=== PATIENT | male | born 1945 | race Caucasian/White ===

== ENCOUNTER 2018-06-27 15:35 | Emergency (ER) | END 2018-06-27 18:57 | disposition home or self-care (01) ==

== ENCOUNTER 2019-05-08 06:35 | Inpatient (IN) | payer MEDICARE, OTHER ==
[~2019-05-08] VITALS: Ht 172.7 cm; Wt 60.0 kg
[~2019-05-08 06:35] MED LIST: ALBU18HF INHALATION; ASPI-716 PO; ASPI-831 GTB; CALC-662 PO; CIPR500T4 PO; DARU600T3 PO; ETRA100T3 PO; LORAZEPAM 0.5 MG; MECL12.574 PO; NIACIN; NIT4 SL; NORV100 PO; OLAN20TA3 PO; OMEP40CA3 PO; PHEN-538 PO; PRAV80TA27 PO; PRED20TA PO; RALT100T PO; TEMA7.5C PO; VENTOLIN PRN
[2019-05-08 06:37] VITALS: Ht 172.7 cm; Wt 60.0 kg
[2019-05-08] MEDS ORDERED: IPRATROPIUM (NEB) 0.5 MG/2.5 ML AMP INH STA (06:42)
[2019-05-08] MEDS ORDERED: METHYLPREDNISOLONE 125 MG INJ IV STA (06:42)
[2019-05-08] MEDS ORDERED: ALBUTEROL 0.5% (NEB) 2.5 MG/0.5 ML AMP INH STA ×2 (06:42→08:17)
[2019-05-08] MEDS ORDERED: SODIUM CHLORIDE 0.9% 1L BAG IV* STA (06:43)
--- NOTE | 2019-05-08 06:56 | ERD ---
ER Documentation Chief Complaint Chief Complaint HPI This is a 73-year-old man with a history of COPD and hypertension presenting wit h shortness of breath, cough, wheezing, and generalized weakness. Patient states he feels dehydrated was well and was brought in by his son for hydration and evaluation in the ER. Patient denies chest pain, no vomiting or diarrhea, no headache or blurry vision, no blood per rectum or melena. ROS All systems reviewed and are negative except as per history of present illness. Medications Home Meds Reported Medications Metoprolol Succinate* (Toprol XL*) 25 Mg Tab.sr.24h, 25 MG PO DAILY, #30 TAB 05/08/19 Olanzapine* (Zyprexa*) 2.5 Mg Tablet, 2.5 MG PO DAILY, #30 TAB 05/08/19 Darunavir* (Prezista*) 800 Mg Tablet, 800 MG PO DAILY, TAB 05/08/19 Alprazolam* (Alprazolam*) 0.5 Mg Tablet, 0.5 MG PO DAILY PRN for ANXIETY, TAB 05/08/19 Temazepam* (Temazepam*) 30 Mg Capsule, 30 MG PO HS PRN for INSOMNIA, CAP 05/08/19 Omeprazole* (Omeprazole*) 40 Mg Capsule.dr, 40 MG PO DAILY, #30 CAP 05/08/19 Ranitidine Hcl* (Ranitidine Hcl*) 300 Mg Tablet, 300 MG PO HS, #30 TAB 05/08/19 Pravastatin Sodium* (Pravastatin Sodium*) 80 Mg Tablet, 80 MG PO HS, TAB 05/08/19 Ritonavir* (Norvir*) 100 Mg Capsule, 100 MG PO DAILY, CAP 05/08/19 Etravirine (Intelence) 100 Mg Tablet, 100 MG PO QID, TAB 05/08/19 Raltegravir Potassium* (Isentress*) 400 Mg Tablet, 400 MG PO BID, TAB 05/08/19 Aspirin* (Aspirin* EC) 81 Mg Tablet.dr, 81 MG PO DAILY, TAB 05/08/19 Magnesium Oxide* (Magnesium Oxide*) 400 Mg Tablet, 400 MG PO DAILY, TAB 05/08/19 Calcium Carbonate/Vitamin D3 (Oysco 500+D Tablet) 1 Each Tablet, 1 EACH PO BID, TAB 05/08/19 Losartan Potassium* (Losartan Potassium*) 25 Mg Tablet, 12.5 MG PO DAILY, TAB 05/08/19 Discontinued Reported Medications [Ventolin Prn] No Conflict Check 08/15/13 Nitroglycerin (Nitrostat) 25 Tab Subl, 0.4 TAB SL PRN 08/15/13 Olanzapine* (Zyprexa*) 20 Mg Tablet, 20 MG PO DAILY 08/15/13 Aspirin* (Ecotrin*) 81 Mg Tablet.dr, 81 MG PO DAILY 08/15/13 Aspirin (Aspirin) 81 Mg Chew, 81 MG GTB 08/15/13 Ritonavir* (Norvir*) 100 Mg Capsule, 100 MG PO DAILY 08/15/13 Raltegravir Potassium (Isentress) 100 Mg Tab.chew, 400 MG PO BID 08/15/13 Etravirine (Intelence) 100 Mg Tablet, 100 MG PO BID 08/15/13 Pravastatin Sodium* (Pravastatin Sodium*) 80 Mg Tablet, 80 MG PO HS 08/15/13 [Sio-Niacin] No Conflict Check 08/15/13 Omeprazole* (Prilosec*) 40 Mg Capsule.dr, 40 MG PO DAILY 08/15/13 [Lorazepam 0.5 Mg. X2] No Conflict Check 08/15/13 Temazepam* (Temazepam*) 7.5 Mg Capsule, 15 MG PO HS 08/15/13 Calcium Carbonate-Vitamin D3 (Calcium 500 + D Tablet) 1 Each Tablet, 1 EACH PO DAILY 08/15/13 Darunavir Ethanolate* (Prezista*) 600 Mg Tablet, 800 MG PO DAILY 08/15/13 Discontinued Scripts Meclizine Hcl* (Antivert*) 12.5 Mg Tab, 25 MG PO Q6H PRN for DIZZINESS, #20 TAB Prov:JAJA RANGEL MD 06/27/18 Prednisone* (Prednisone*) 20 Mg Tab, 40 MG PO DAILY for 4 Days, TAB Prov:GEOVANI PATIÑO MD 07/13/17 Albuterol Sulfate* (Ventolin HFA*) 18 Gm Hfa.aer.ad, 2 PUFF INHALATION Q4H, #1 INHALER Prov:GEOVANI PATIÑO MD 07/13/17 Phenazopyridine Hcl* (Pyridium*) 200 Mg Tab, 200 MG PO TID PRN for URINARY PAIN, #6 TAB Prov:GEOVANI PATIÑO MD 07/13/17 Ciprofloxacin Hcl* (Ciprofloxacin Hcl*) 500 Mg Tablet, 500 MG PO BID for 7 Days, TAB Prov:GEOVANI PATIÑO MD 07/13/17 Allergies Allergies: Coded Allergies: No Known Allergies (Verified Allergy, Unknown, 05/08/19) PMhx/Soc CAD, history of stent, pacemaker, COPD current smoker, hypertension History of Surgery: Yes (PACEMAKER X 2 , STENT PLACED ) Anesthesia Reaction: No Hx Neurological Disorder: No Hx Respiratory Disorders: Yes (EMPHYSEMA, SOB ON EXERTION) Hx Cardiac Disorders: Yes (CAD, STENT PLACED, PACEMAKER) Hx Psychiatric Problems: Yes (DEPRESSION) Hx Miscellaneous Medical Probl: Yes (HTN, A/V BLOCK) Hx Alcohol Use: Yes Hx Substance Use: Yes Hx Tobacco Use: Yes FmHx Family History: No diabetes Physical Exam Vitals Vital Signs Date Temp Pulse Resp B/P (MAP) Pulse Ox O2 O2 Flow FiO2 Time Delivery Rate 05/08/19 93 107/77 10:35 (87) 05/08/19 96 17 100/94 100 Room Air 10:00 (96) BIPAP 05/08/19 109 90/57 (68) 09:11 05/08/19 112 82/52 (62) 09:02 05/08/19 112 28 77/51 (60) 93 08:59 05/08/19 101.0 07:24 05/08/19 101.0 07:16 05/08/19 89 20 Nasal 2.0 06:59 Cannula 05/08/19 Nasal 3 06:55 Cannula 05/08/19 98.7 114 26 110/59 91 06:37 (76) Per nurse's records Physical Exam Const: Elderly, chronically debilitated man, appears dehydrated, febrile HEENT: Dry mucous membranes, pink conjunctive a, Resp: Poor breath sounds, scattered wheezes Cardio: Tachycardic and regular, no crackles Abd: Soft, non tender, non distended. No masses or guarding Skin: No petechiae or rashes, no lacerations, no hematomas Ext: No cyanosis, or edema, calves symmetrical Neur: Awake and alert x 2, no focal deficits or facial asymmetry, pupils equal round reactive to light, moving all extremities Result Diagram: 05/08/19 0801 05/08/19 0801 Results 24 hrs Laboratory Tests Test 05/08/19 07:09 05/08/19 07:40 05/08/19 08:01 05/08/19 08:03 POC Venous 8.9 mmol/L Lactate Urine Color SHANT Urine Clarity SLIGHTLY CLOUDY Urine pH 6.0 Urine Specific 1.016 [place] Urine Ketones TRACE mg/dL Urine Nitrite NEGATIVE mg/dL Urine Bilirubin NEGATIVE mg/dL Urine 1+ mg/dL Urobilinogen Urine Leukocyte NEGATIVE Too/ul Esterase Urine 12 /HPF Microscopic RBC Urine 8 /HPF Microscopic WBC Urine Mucus FEW /HPF Urine 2+ mg/dL Hemoglobin Urine Glucose NEGATIVE mg/dL Urine Total 2+ mg/dl Protein White Blood 4.9 10^3/ul Count Red Blood Count 4.63 10^6/ul Hemoglobin 13.4 g/dl Hematocrit 41.0 % Mean 88.6 fl Corpuscular Volume Mean 28.9 pg Corpuscular Hemoglobin Mean 32.7 g/dl Corpuscular Hemoglobin Conc ent Red Cell 14.6 % Distribution Width Platelet Count 84 10^3/UL Mean Platelet 9.7 fl Volume Immature 1.000 % Granulocytes % Neutrophils % 83.2 % Lymphocytes % 9.9 % Monocytes % 5.7 % Eosinophils % 0.0 % Basophils % 0.2 % Nucleated Red 0.4 /100WBC Blood Cells % Immature 0.050 10^3/ul Granulocytes # Neutrophils # 4.1 10^3/ul Lymphocytes # 0.5 10^3/ul Monocytes # 0.3 10^3/ul Eosinophils # 0.0 10^3/ul Basophils # 0.0 10^3/ul Nucleated Red 0.0 10^3/ul Blood Cells # Prothrombin 17.7 Sec Time Prothrombin 1.4 Time Ratio INR 1.45 International Normalized Rati o Activated 34.4 Sec Partial Thrombo plast Time Sodium Level 133 mmol/L Potassium Level 4.9 mmol/L Chloride Level 101 mmol/L Carbon Dioxide 20 mmol/L Level Anion Gap 12 Blood Urea 40 mg/dl Nitrogen Creatinine 1.46 mg/dl Est Glomerular mL/min Filtrat Rate mL/min Glucose Level 106 mg/dl Calcium Level 7.8 mg/dl Total Bilirubin 1.3 mg/dl Direct 0.40 mg/dl Bilirubin Indirect 0.9 mg/dl Bilirubin Aspartate Amino 83 IU/L Transf (AST/SGO T) Alanine 73 IU/L Aminotransferas e (ALT/SGPT) Alkaline 58 IU/L Phosphatase Troponin I 0.072 ng/ml Total Protein 5.5 g/dl Albumin 2.7 g/dl Globulin 2.80 g/dl Albumin/Globuli 0.96 n Ratio Lipase 15 U/L Lactic Acid 7.1 mmol/L Level Test 05/08/19 09:46 Blood Gas Blood arterial Specimen Source Arterial Blood 05/08/2019 9:45: Date Drawn 59 AM Arterial Blood 7.351 pH (Temp corrected ) Arterial Blood 31.1 mmhg pCO2 (Temp correct) Arterial Blood 130.9 mmHG pO2 (Temp corrected ) Arterial Blood 16.8 mmol/L HCO3 Arterial Blood -7.6 mmol/L Base Excess Arterial Blood 98.0 mmHG Oxygen Saturati on Mark Test ACCEPTAB Arterial Blood Right Radial Gas Puncture Site Arterial 1.0 % Blood Carboxyhe moglobin Arterial Blood 0.1 % Methemoglobin Blood Gas A-a 551.0 mmHg O2 Differential Oxyhemoglobin 96.9 % Percent Blood Gas 37.0 C Temperature Blood Gas 14.0 Respiration Rate Blood Gas 16 Actual Respiration Rat e Blood Gas MASK - BIPAP Modality FiO2 100.0 % Blood Gas 10 Pressure Support Blood Gas 15/5 IPAP/EPAP Ratio Blood Gas RT Notified Whom Blood Gas 05/08/2019 9:56: Notified Time 39 AM Current Medications Medications Dose Sig/Jorge Start Time Status Last (Trade) Ordered Route PRN Stop Time Admin Dose Reason Admin Albuterol 10 mg ONCE STAT 05/08/19 DC 05/08/19 (Proventil INH 06:42 06:59 0.5% (Neb)) 05/08/19 06:43 Ipratropium 1 mg ONCE STAT 05/08/19 DC 05/08/19 [place] INH 06:42 06:59 (Atrovent 05/08/19 06:43 0.02% (Neb)) 125 mg ONCE STAT 05/08/19 DC 05/08/19 Methylprednis IV 06:42 07:24 olone Sodium 05/08/19 06:43 Succinate (Solu-Medrol) Sodium 3,000 ml BOLUS OVER 2 05/08/19 DC 05/08/19 Chloride HOURS STAT 06:43 07:18 (NS) IV* 05/08/19 06:48 Ibuprofen 600 mg ONCE ONCE 05/08/19 DC 05/08/19 (Motrin) PO 07:00 07:24 05/08/19 07:01 Ceftriaxone 50 ml @ ONCE ONCE 05/08/19 DC 05/08/19 Sodium 100 mls/hr IVPB 07:00 08:16 05/08/19 07:29 Azithromycin 250 ml @ ONCE ONCE 05/08/19 DC 05/08/19 250 mls/hr IVPB 07:30 08:49 05/08/19 08:29 Albuterol 10 mg ONCE STAT 05/08/19 DC 05/08/19 (Proventil INH 08:17 08:54 0.5% (Neb)) 05/08/19 08:18 Piperacillin 100 ml @ Q6 IVPB 05/08/19 Sod/ 200 mls/hr 12:00 Tazobactam Sod Vancomycin VANCOMYCIN PER 05/08/19 HCl (Vanco PER PHARMACY PROTOCOL XX 09:30 Iv Per Pharmacy) 250 ml @ ud STK-MED 05/08/19 DC Norepinephrin ONCE .ROUTE 09:42 e 05/08/19 09:43 250 ml @ TITRATE IV 05/08/19 05/08/19 Norepinephrin 1.875 mls/ 10:00 09:50 e hr Vancomycin 250 ml @ ONCE ONCE 05/08/19 HCl 1.25 83.333 mls/ IVPB 11:00 gm/Sodium hr 05/08/19 13:59 Chloride Procedures/MDM IV line was established patient was placed on campus monitor rhythm strip revealed a paced tachycardia at 100 bpm with upright P and T waves. Patient was afebrile, blood, urine, fecal cultures have all been ordered results are pending and I will follow-up I administered 3 L normal saline IV for dehydration, albuterol 10 mg via nebulizer, ipratropium 1 mg via nebulizer, methylprednisolone 125 mg IV, and ceftriaxone 1 g IV. Patient also received ibuprofen 600 mg p.o. for fever. EKG performed, read by me revealed a paced rhythm at 88 bpm, left axis deviation, bundle branch block, no concerning ST elevations or depressions noted 1 view chest x-ray performed, read by me reveals a pacemaker in the left chest and near complete opacification of the right lung consistent with infiltrates, no pneumothorax, no air under the diaphragm I also administered azithromycin 500 mg IV x1. CBC was unremarkable, electrolytes revealed dehydration with a BUN creatinine 40/1.5, liver function tests elevated, troponin negative Patient's infectious symptoms have not stabilized and the patient is at risk of rapid decompensation. The patient will be admitted for careful hydration, an tibiotic therapy, and infectious source control. SEVERE SEPSIS CRITERIA: Infectious source: Right-sided pneumonia End organ damage indicated by: SEPSIS MANAGEMENT Time of recognition of sepsis: Upon arrival. Time of recognition of severe sepsis: severe sepsis at this time. Time of recognition of septic shock: septic shock at this time. 3 HOUR BUNDLE Blood cultures x 2 before broad-spectrum antibiotics: Yes 30 ml/kg NS bolus completed Initial lactate 8 Repeat lactate 7.1 SEPTIC SHOCK ASSESSMENT: yes lactic acid > 4.0 Yes persistent hypotension (SBP < 90 or 40 mmHg drop, MAP < 65) despite 30 mL/kg IV fluid bolus VOLUME REASSESSMENT FOR SEPTIC SHOCK: Reevaluation Time: 730 Temp 100 F, BP 100/80, heart rate 80, respiratory rate 30 breaths/min, oxygen saturation 96% Heart regular rate & rhythm Lungs poor breath sounds bilaterally, scattered wheezes Skin warm & dry Cap Refill less than 2 seconds Peripheral pulses radially present PERSISTENT HYPOTENSION TREATMENT: Comfort care no Central line placed in the right femoral vein by me under sterile procedures. Patient tolerated procedure well. CRITICAL CARE: Critical care time 35 minutes, this was time separate from other billable procedures. Emergent fluid management while maintaining close respiratory support. Provision of immediate and broad-spectrum antibiotic therapy. Simultaneous assessment for possible sources in order to direct targeted therapy. Consideration for invasive and chemical support to prevent cardiopulmonary collapse. Critical care time is independent of procedures performed. Accepting Care Team: Current data and ongoing care discussed. Time: Time of admission Primary Provider: Hospitalist Consulting: Infectious disease and pulmonology Outstanding Data: none Departure Diagnosis: Primary Impression: Diarrhea with dehydration Additional Impressions: COPD (chronic obstructive pulmonary disease) COPD type: COPD with acute exacerbation Qualified Codes: J44.1 - Chronic obstructive pulmonary disease with (acute) exacerbation Sepsis Sepsis type: sepsis due to unspecified organism Qualified Codes: A41.9 - Sepsis, unspecified organism Pneumonia Pneumonia type: due to unspecified organism Laterality: right Lung location: middle lobe of lung Qualified Codes: J18.1 - Lobar pneumonia, unspecified organism Condition: Serious ERNESTO JOHNSON MD May 08, 2019 06:55
[2019-05-08] MEDS ORDERED: CEFTRIAXONE 1 GM/50 ML (PMX) 50 ML IVPB ONE (07:00)
[2019-05-08] MEDS ORDERED: IBUPROFEN 600 MG TAB PO ONE (07:00)
[2019-05-08] MEDS ORDERED: AZITHROMYCIN 500MG/NS (PMX) 250 ML IVPB ONE (07:30)
[2019-05-08] MEDS ORDERED: VANCOMYCIN IV PER PHARMACY XX SCH (09:30)
[2019-05-08] MEDS ORDERED: NORepinephrine 8MG/250 ML (PMX 250 ML ONE (09:42)
[2019-05-08] MEDS ORDERED: NORepinephrine 8MG/250 ML (PMX 250 ML IV SCH (10:00)
[2019-05-08] MEDS ORDERED: LOSA25TA12 PO (10:01)
[2019-05-08] MEDS ORDERED: CALC1TAB79 PO (10:03)
[2019-05-08] MEDS ORDERED: MAGN400T28 PO (10:04)
[2019-05-08] MEDS ORDERED: ASPI-817 PO (10:04)
[2019-05-08] MEDS ORDERED: ISEN400 PO (10:05)
[2019-05-08] MEDS ORDERED: ETRA100T3 PO (10:07)
[2019-05-08] MEDS ORDERED: NORV100 PO (10:07)
[2019-05-08] MEDS ORDERED: PRAV80TA27 PO (10:08)
[2019-05-08] MEDS ORDERED: RANI300T PO (10:08)
[2019-05-08] MEDS ORDERED: OMEP40CA6 PO (10:09)
[2019-05-08] MEDS ORDERED: ALPR0.5T6 PO (10:11)
[2019-05-08] MEDS ORDERED: TEMA30CA PO (10:11)
[2019-05-08] MEDS ORDERED: DARU800T2 PO (10:12)
[2019-05-08] MEDS ORDERED: OLAN2.5T28 PO (10:12)
[2019-05-08] MEDS ORDERED: METO-335 PO (10:13)
[2019-05-08] MEDS ORDERED: SOD CHLORIDE 0.9% 1,000 ML IV SCH (10:45)
--- NOTE | 2019-05-08 10:54 | HP ---
Date/Time of Note Date/Time of Note DATE: 05/08/19 TIME: 10:47 Assessment/Plan VTE Prophylaxis SCD applied (from Nsg): Yes Pharmacological prophylaxis: NA/contraindicated Pharm contraindication: low risk/ambulating Lines/Catheters IV Catheter Type (from Nrsg): Saline Lock Assessment/Plan Hospital Course SUBJECTIVE: Seen patient in the emergency room 6. Having moderate respiratory distress, receiving respiratory treatment. Patient also with productive constant cough. OBJECTIVE: Vital signs-see below PHYSICAL EXAM: Constitutional: Ill looking male,not in acute distress. HEENT: Head atraumatic and normocephalic. Eyes: Extraocular muscles intact. Anicteric sclerae. Pupils equal bilaterally, reactive to light. NECK: Supple without lymph node. CHEST: Rhonchi bilaterally. HEART: S1, S2. Regular rate and rhythm. ABDOMEN: Protuberant abdomen. non tender with no rebound tenderness. Bowel sounds were present. EXTREMITIES: No cyanosis, clubbing or edema. NEUROLOGIC: Alert and oriented x3. No focal deficit. No sensory deficit. PSYCHOSOCIAL: No signs of depression. INTEGUMENTARY: No open wounds. ASSESSMENT AND PLAN:73 yo M w/ HIV on treatment,hld,htn,cad/stent/PPM, pulm.tuberculosis treated, here w/ 2 weeks duration of cough followed by fevers, respiratory distress found to have severe sepsis... Severe sepsis with septic shock -Most suspect course: Respiratory -ED to insert central line and start levo fed -admit to ICU -Empiric Zosyn/vancomycin and ID to review case. -IVF, lactate level -Pancultures, sputum culture if possible Acute hypoxemic respiratory failure -Obtain ABG -BiPAP -Pulmonary consult -Dcydus-big-oyqxn bronchodilators -Chest CT Right sided Pneumonia -IV antibiotics -In light of HIV, go ahead and obtain a chest CT. -ID/Pulm consult Acute kidney injury likely secondary to sepsis -Monitor renal function closely -IV fluids -nephrology follow-up Chronic anemia -Stable H&H. No overt bleeding HIV -Pt stopped taking meds 2 days ago 2/2 weakness -Patient to bring home HIV meds and to continue as indicated. -Defer further HIV med mgmt to ID team -CD4,viral load Hyperlipidemia -Resume statin Hypertension -Currently patient in severe sepsis and is hypotensive. Hold all antihypertensives. Coronary artery disease/status post stent/pacemaker -Resume aspirin. Hold antihypertensives in light of hypotension DVT prophylaxis: SCDs PUD prophylaxis: H2 blockers Rest of the management depend on clinical course. And consultants recommendations. Approximately 60-minute was spent on this history and physical. Patient was seen in collaboration with Dr. Manley. Result Diagram: 05/08/19 0801 05/08/19 0801 Results 24hrs Laboratory Tests Test 05/08/19 07:09 05/08/19 07:40 05/08/19 08:01 05/08/19 08:03 POC Venous 8.9 *H Lactate Urine Color SHANT Urine Clarity SLIGHTLY CLOUDY A Urine pH 6.0 Urine Specific 1.016 [place] Urine Ketones TRACE A Urine Nitrite NEGATIVE Urine Bilirubin NEGATIVE Urine 1+ H Urobilinogen Urine Leukocyte NEGATIVE Esterase Urine 12 H Microscopic RBC Urine 8 H Microscopic WBC Urine Mucus FEW A Urine Hemoglobin 2+ H Urine Glucose NEGATIVE Urine Total 2+ H Protein White Blood 4.9 Count Red Blood Count 4.63 L Hemoglobin 13.4 L Hematocrit 41.0 L Mean Corpuscular 88.6 Volume Mean Corpuscular 28.9 L Hemoglobin Mean Corpuscular 32.7 Hemoglobin Mady nt Red Cell 14.6 H Distribution Width Platelet Count 84 L Mean Platelet 9.7 Volume Immature 1.000 H Granulocytes % Neutrophils % 83.2 H Lymphocytes % 9.9 L Monocytes % 5.7 Eosinophils % 0.0 Basophils % 0.2 Nucleated Red 0.4 H Blood Cells % Immature 0.050 H Granulocytes # Neutrophils # 4.1 Lymphocytes # 0.5 L Monocytes # 0.3 Eosinophils # 0.0 Basophils # 0.0 Nucleated Red 0.0 Blood Cells # Prothrombin Time 17.7 H Prothrombin Time 1.4 Ratio INR 1.45 International Normalized Ratio Activated 34.4 Partial Thrombop last Time Sodium Level 133 L Potassium Level 4.9 Chloride Level 101 Carbon Dioxide 20 L Level Anion Gap 12 Blood Urea 40 H Nitrogen Creatinine 1.46 H Est Glomerular Filtrat Rate mL/min Glucose Level 106 Calcium Level 7.8 L Total Bilirubin 1.3 Direct Bilirubin 0.40 H Indirect 0.9 Bilirubin Aspartate Amino 83 H Transf (AST/SGOT ) Alanine 73 H Aminotransferase (ALT/SGPT) Alkaline 58 Phosphatase Troponin I 0.072 Total Protein 5.5 L Albumin 2.7 L Globulin 2.80 Albumin/Globulin 0.96 Ratio Lipase 15 L Lactic Acid 7.1 *H Level Test 6/20/19 09:46 05/08/19 10:17 Blood Gas Blood arterial Specimen Source Arterial Blood 05/08/2019 9:45: Date Drawn 59 AM Arterial Blood 7.351 pH (Temp corrected) Arterial Blood 31.1 L pCO2 (Temp correct) Arterial Blood 130.9 H pO2 (Temp corrected) Arterial Blood 16.8 L HCO3 Arterial Blood -7.6 L Base Excess Arterial Blood 98.0 Oxygen Saturatio n Mark Test ACCEPTAB Arterial Blood Right Radial Gas Puncture Site Arterial 1.0 Blood Carboxyhem oglobin Arterial Blood 0.1 Methemoglobin Blood Gas A-a O2 551.0 H Differential Oxyhemoglobin 96.9 Percent Blood Gas 37.0 Temperature Blood Gas 14.0 Respiration Rate Blood Gas Actual 16 Respiration Rate Blood Gas MASK - BIPAP Modality FiO2 100.0 Blood Gas 10 Pressure Support Blood Gas 15/5 IPAP/EPAP Ratio Blood Gas RT Notified Whom Blood Gas 05/08/2019 9:56: Notified Time 39 AM Lactic Acid 3.5 *H Level HPI/ROS Admit Date/Time Admit Date/Time Hx of Present Illness This is a 73-year-old male with a past medical history of dyslipidemia, HIV on treatment, pulmonary tuberculosis treated, coronary artery disease with stent placed, pacemaker placed, depression/anxiety disorders, hypertension, who was brought into the emergency room with worsening cough, shortness of breath, fevers since yesterday. Apparently, patient has been having this cough for about 2 weeks which got worse yesterday. He was having diarrhea lately. He also stopped taking his HIV drugs for the last 2 days. He denied chest pain, palpitation, nausea, vomiting, abdominal pain, dizziness, headache, numbness, tingling, speech difficulties, vision changes, constipation or other constitutional symptoms. In the emergency room, patient was noted with a hemoglobin 13.4, hematocrit 41, platelet 84,000, sodium 133, BUN 40, creatinine 1.46 with a lactic acid level 7.1. Patient was also noted with elevated AST and ALT. Vital signs temperature 101, pulse rate 112, respiratory rate 28, blood pressure 77/51 and oxygen saturation 91% on room air. Chest x-ray showed Diffuse right greater than left interstitial and right lung predominant extensive patchy airspace opacities may represent multifocal infection, hemorrhage, or asymmetric pulmonary edema. Patient was given breathing treatments, azithromycin, ceftriaxone and fluid bolus in the emergency room. ROS At my encounter with the patient, he is in moderate respiratory distress. His blood pressure is also dropping. However, patient is denying any acute discomfort. PMH/Family/Social Past Medical History See HPI Medications Current Medications Piperacillin Sod/ Tazobactam Sod 100 ml @ 200 mls/hr Q6 IVPB ; Start 05/08/19 at 12:00 Vancomycin HCl (Vanco Iv Per Pharmacy) VANCOMYCIN PER PHARMACY PER PROTOCOL XX ; Start 05/08/19 at 09:30 Norepinephrine 250 ml @ 1.875 mls/ hr TITRATE IV Last administered on 05/08/19at 09:50; Admin Dose 9.375 MLS/HR; Start 05/08/19 at 10:00 Vancomycin HCl 1.25 gm/Sodium Chloride 250 ml @ 83.333 mls/ hr ONCE ONCE IVPB ; Start 05/08/19 at 11:00; Stop 05/08/19 at 13:59 Coded Allergies: No Known Allergies (Verified Allergy, Unknown, 05/08/19) Past Surgical History See HPI Social History Former smoker. Denies any current use of alcohol, smoking or substance abuse. Smoking Status: Former smoker Exam/Review of Systems Vital Signs Vitals Vital Signs Date Temp Pulse Resp B/P (MAP) Pulse Ox O2 O2 Flow FiO2 Time Delivery Rate 05/08/19 93 107/77 10:35 (87) 05/08/19 17 100 Room Air 10:00 BIPAP 05/08/19 101.0 07:24 05/08/19 2.0 06:59 STEPHEN ACOSTA NP May 08, 2019 10:54
[2019-05-08] MEDS ORDERED: VANCOMYCIN HCL 1.25 GM in SOD CHLORIDE 0.9% 250 ML IVPB ONE (11:00)
[2019-05-08] MEDS ORDERED: NACL 0.9% 3 ML SYG IV SCH (11:00)
[2019-05-08] MEDS ORDERED: IPRATROPIUM (NEB) 0.5 MG/2.5 ML AMP NEB PRN (11:00)
[2019-05-08] MEDS ORDERED: DOCUSATE SODIUM 100 MG CAP PO PRN (11:00)
[2019-05-08] MEDS ORDERED: ONDANSETRON 4 MG INJ IV PRN ×2 (11:00)
[2019-05-08] MEDS ORDERED: LEVALBUTEROL (NEB) 1.25 MG/0.5 ML AMP HHN PRN (11:00)
[2019-05-08] MEDS ORDERED: ACETAMINOPHEN 650MG/20.3ML CUP PO PRN (11:00)
[2019-05-08] MEDS ORDERED: ALPRAZOLAM 0.5 MG TAB PO PRN (11:30)
[2019-05-08] MEDS ORDERED: PATIENT'S OWN MEDICATION PO SCH (11:30)
[2019-05-08] MEDS ORDERED: PIPER-TAZO 3.375 GM IV (PMX) 100 ML IVPB SCH (12:00)
--- NOTE | 2019-05-08 12:27 | CONS ---
Assessment/Plan Assessment/Plan Hospital Course (Demo Recall) 1) R sided infiltrates pt has healthy enough CD4 (19% and 276) that PCP is very unlikely he does have a hx of active TB treated years ago and this is unlikely to be TB but would get chest CT when pt is stable and pt should be in isolation till more info is available if CT does not rule out TB then pt will need induced sputums for AFB continue with ceftriaxone and start doxycycline for atypical coverage and MRSA, no reason to treat for HCAP at this time get sputum cx if possible get nasal for MRSA get nasal for viral PCR check procalcitonin now and in a.m. check LDH, ESR 2) HIV on isentress, prezista/norvir and intelence viral load is very low and CD4 count in march 2019 was 276 (19%) 3) CAD with pacer 4) HTN Consultation Date/Type/Reason Admit Date/Time Date of Consultation: May 08, 2019 Type of Consult ID Date/Time of Note DATE: 05/08/19 TIME: 12:02 Hx of Present Illness pt seen in ER pt has had SOB with mostly a dry cough for two weeks, when he did produce phlegm it was whitish no N, V No CP but does have abd pain from coughing no D, ENGEL, sore throat he has occasional coryza no dysuria, rashes he thinks his partner had a URI recently Past Medical History HIV, TB, hepatitis (type unknown), PCP, HTN, CAD Home Meds Reported Medications Metoprolol Succinate* (Toprol XL*) 25 Mg Tab.sr.24h, 25 MG PO DAILY, #30 TAB 05/08/19 Olanzapine* (Zyprexa*) 2.5 Mg Tablet, 2.5 MG PO DAILY, #30 TAB 05/08/19 Darunavir* (Prezista*) 800 Mg Tablet, 800 MG PO DAILY, TAB 05/08/19 Alprazolam* (Alprazolam*) 0.5 Mg Tablet, 0.5 MG PO DAILY PRN for ANXIETY, TAB 05/08/19 Temazepam* (Temazepam*) 30 Mg Capsule, 30 MG PO HS PRN for INSOMNIA, CAP 05/08/19 Omeprazole* (Omeprazole*) 40 Mg Capsule.dr, 40 MG PO DAILY, #30 CAP 05/08/19 Ranitidine Hcl* (Ranitidine Hcl*) 300 Mg Tablet, 300 MG PO HS, #30 TAB 05/08/19 Pravastatin Sodium* (Pravastatin Sodium*) 80 Mg Tablet, 80 MG PO HS, TAB 05/08/19 Ritonavir* (Norvir*) 100 Mg Capsule, 100 MG PO DAILY, CAP 05/08/19 Etravirine (Intelence) 100 Mg Tablet, 100 MG PO QID, TAB 05/08/19 Raltegravir Potassium* (Isentress*) 400 Mg Tablet, 400 MG PO BID, TAB 05/08/19 Aspirin* (Aspirin* EC) 81 Mg Tablet.dr, 81 MG PO DAILY, TAB 05/08/19 Magnesium Oxide* (Magnesium Oxide*) 400 Mg Tablet, 400 MG PO DAILY, TAB 05/08/19 Calcium Carbonate/Vitamin D3 (Oysco 500+D Tablet) 1 Each Tablet, 1 EACH PO BID, TAB 05/08/19 Losartan Potassium* (Losartan Potassium*) 25 Mg Tablet, 12.5 MG PO DAILY, TAB 05/08/19 Discontinued Reported Medications [Ventolin Prn] No Conflict Check 08/15/13 Nitroglycerin (Nitrostat) 25 Tab Subl, 0.4 TAB SL PRN 08/15/13 Olanzapine* (Zyprexa*) 20 Mg Tablet, 20 MG PO DAILY 08/15/13 Aspirin* (Ecotrin*) 81 Mg Tablet.dr, 81 MG PO DAILY 08/15/13 Aspirin (Aspirin) 81 Mg Chew, 81 MG GTB 08/15/13 Ritonavir* (Norvir*) 100 Mg Capsule, 100 MG PO DAILY 08/15/13 Raltegravir Potassium (Isentress) 100 Mg Tab.chew, 400 MG PO BID 08/15/13 Etravirine (Intelence) 100 Mg Tablet, 100 MG PO BID 08/15/13 Pravastatin Sodium* (Pravastatin Sodium*) 80 Mg Tablet, 80 MG PO HS 08/15/13 [Sio-Niacin] No Conflict Check 08/15/13 Omeprazole* (Prilosec*) 40 Mg Capsule.dr, 40 MG PO DAILY 08/15/13 [Lorazepam 0.5 Mg. X2] No Conflict Check 08/15/13 Temazepam* (Temazepam*) 7.5 Mg Capsule, 15 MG PO HS 08/15/13 Calcium Carbonate-Vitamin D3 (Calcium 500 + D Tablet) 1 Each Tablet, 1 EACH PO DAILY 08/15/13 Darunavir Ethanolate* (Prezista*) 600 Mg Tablet, 800 MG PO DAILY 08/15/13 Discontinued Scripts Meclizine Hcl* (Antivert*) 12.5 Mg Tab, 25 MG PO Q6H PRN for DIZZINESS, #20 TAB Prov:JAJA RANGEL MD 06/27/18 Prednisone* (Prednisone*) 20 Mg Tab, 40 MG PO DAILY for 4 Days, TAB Prov:GEOVANI PATIÑO MD 07/13/17 Albuterol Sulfate* (Ventolin HFA*) 18 Gm Hfa.aer.ad, 2 PUFF INHALATION Q4H, #1 INHALER Prov:GEOVANI PATIÑO MD 07/13/17 Phenazopyridine Hcl* (Pyridium*) 200 Mg Tab, 200 MG PO TID PRN for URINARY PAIN, #6 TAB Prov:GEOVANI PATIÑO MD 07/13/17 Ciprofloxacin Hcl* (Ciprofloxacin Hcl*) 500 Mg Tablet, 500 MG PO BID for 7 Days, TAB Prov:GEOVANI PATIÑO MD 07/13/17 Medications Current Medications Piperacillin Sod/ Tazobactam Sod 100 ml @ 200 mls/hr Q6 IVPB ; Start 05/08/19 at 12:00 Vancomycin HCl (Vanco Iv Per Pharmacy) VANCOMYCIN PER PHARMACY PER PROTOCOL XX ; Start 05/08/19 at 09:30 Norepinephrine 250 ml @ 1.875 mls/ hr TITRATE IV Last administered on 05/08/19at 09:50; Admin Dose 9.375 MLS/HR; Start 05/08/19 at 10:00 Vancomycin HCl 1.25 gm/Sodium Chloride 250 ml @ 83.333 mls/ hr ONCE ONCE IVPB ; Start 05/08/19 at 11:00; Stop 05/08/19 at 13:59 Sodium Chloride 1,000 ml @ 50 mls/hr Q20H IV Last administered on 05/08/19at 11:29; Admin Dose 50 MLS/HR; Start 05/08/19 at 10:45 Ondansetron HCl (Zofran Inj) 4 mg Q6H PRN IV NAUSEA AND/OR VOMITING; Start 05/08/19 at 11:00 Ipratropium [place] (Atrovent 0.02% (Neb)) 0.5 mg Q4H RESP THERAPY NEB ; Start 05/08/19 at 13:00 Ipratropium [place] (Atrovent 0.02% (Neb)) 0.5 mg Q2H RESP THERAPY PRN NEB SHORTNESS OF BREATH; Start 05/08/19 at 11:00 Acetaminophen (Tylenol Liquid) 650 mg Q6H PRN PO PAIN LEVEL 1-3 OR FEVER; Start 05/08/19 at 11:00 Docusate Sodium (Colace) 100 mg Q12H PRN PO CONSTIPATION; Start 05/08/19 at 11:00 Famotidine (Pepcid) 20 mg DAILY PO ; Start 05/08/19 at 14:00 Levalbuterol (Xopenex Neb) 1.25 mg Q4H RESP THERAPY HHN ; Start 05/08/19 at 1 3:00 Levalbuterol (Xopenex Neb) 1.25 mg Q2H RESP THERAPY PRN HHN SHORTNESS OF BREATH; Start 05/08/19 at 11:00 IV Flush (NS 3 ml) 3 ml PER PROTOCOL IV ; Start 05/08/19 at 11:00 Alprazolam (Xanax) 0.5 mg DAILY PRN PO ANXIETY; Start 05/08/19 at 11:30 Aspirin (Halfprin) 81 mg DAILY PO ; Start 05/09/19 at 09:00 Calcium/Vitamin D (Oyster Shell/ Vit-D (500/200)) 1 tab BID PO ; Start 05/08/19 at 21:00 Olanzapine (Zyprexa) 2.5 mg DAILY PO ; Start 05/09/19 at 09:00 Atorvastatin Calcium (Lipitor) 20 mg DAILY@21 PO ; Start 05/08/19 at 21:00 Zolpidem Tartrate (Ambien) 5 mg HS MAY REPEAT X 1 PRN PO INSOMNIA; Start 05/08/19 at 21:00 Patient Own Medication 1 ea PER SCRIPT PO ; Start 05/08/19 at 11:30; Status UNV Allergies: Coded Allergies: No Known Allergies (Verified Allergy, Unknown, 05/08/19) Past Surgical History cardiac stents, Pacer Social History Smoking Status: Former smoker Exam/Review of Systems Exam Vitals Vital Signs Date Temp Pulse Resp B/P (MAP) Pulse Ox O2 O2 Flow FiO2 Time Delivery Rate 05/08/19 102 24 95/70 (78) 99 BIPAP 11:59 05/08/19 100.4 11:35 05/08/19 2.0 06:59 Constitutional: alert, oriented Eyes: nl sclera ENMT: other (pt in biPAP) Respiratory: other (R base crackles) Cardiovascular: regular rate and rhythm Gastrointestinal: soft, distended, other (mild loulou-umbilical tenderness) Extremities: other (no swelling) Results Result Diagram: 05/08/19 0801 05/08/19 0801 Results 24hrs Laboratory Tests Test 05/08/19 07:09 05/08/19 07:40 05/08/19 08:01 05/08/19 08:03 POC Venous 8.9 *H Lactate Urine Color SHANT Urine Clarity SLIGHTLY CLOUDY A Urine pH 6.0 Urine Specific 1.016 Mathias Urine Ketones TRACE A Urine Nitrite NEGATIVE Urine Bilirubin NEGATIVE Urine 1+ H Urobilinogen Urine Leukocyte NEGATIVE Esterase Urine 12 H Microscopic RBC Urine 8 H Microscopic WBC Urine Mucus FEW A Urine Hemoglobin 2+ H Urine Glucose NEGATIVE Urine Total 2+ H Protein White Blood 4.9 Count Red Blood Count 4.63 L Hemoglobin 13.4 L Hematocrit 41.0 L Mean Corpuscular 88.6 Volume Mean Corpuscular 28.9 L Hemoglobin Mean Corpuscular 32.7 Hemoglobin Mady nt Red Cell 14.6 H Distribution Width Platelet Count 84 L Mean Platelet 9.7 Volume Immature 1.000 H Granulocytes % Neutrophils % 83.2 H Lymphocytes % 9.9 L Monocytes % 5.7 Eosinophils % 0.0 Basophils % 0.2 Nucleated Red 0.4 H Blood Cells % Immature 0.050 H Granulocytes # Neutrophils # 4.1 Lymphocytes # 0.5 L Monocytes # 0.3 Eosinophils # 0.0 Basophils # 0.0 Nucleated Red 0.0 Blood Cells # Prothrombin Time 17.7 H Prothrombin Time 1.4 Ratio INR 1.45 International Normalized Ratio Activated 34.4 Partial Thrombop last Time Sodium Level 133 L Potassium Level 4.9 Chloride Level 101 Carbon Dioxide 20 L Level Anion Gap 12 Blood Urea 40 H Nitrogen Creatinine 1.46 H Est Glomerular Filtrat Rate mL/min Glucose Level 106 Calcium Level 7.8 L Total Bilirubin 1.3 Direct Bilirubin 0.40 H Indirect 0.9 Bilirubin Aspartate Amino 83 H Transf (AST/SGOT ) Alanine 73 H Aminotransferase (ALT/SGPT) Alkaline 58 Phosphatase Troponin I 0.072 Total Protein 5.5 L Albumin 2.7 L Globulin 2.80 Albumin/Globulin 0.96 Ratio Lipase 15 L Lactic Acid 7.1 *H Level Test 05/08/19 09:46 05/08/19 10:17 Blood Gas Blood arterial Specimen Source Arterial Blood 05/08/2019 9:45: Date Drawn 59 AM Arterial Blood 7.351 pH (Temp corrected) Arterial Blood 31.1 L pCO2 (Temp correct) Arterial Blood 130.9 H pO2 (Temp corrected) Arterial Blood 16.8 L HCO3 Arterial Blood -7.6 L Base Excess Arterial Blood 98.0 Oxygen Saturatio n Mark Test ACCEPTAB Arterial Blood Right Radial Gas Puncture Site Arterial 1.0 Blood Carboxyhem oglobin Arterial Blood 0.1 Methemoglobin Blood Gas A-a O2 551.0 H Differential Oxyhemoglobin 96.9 Percent Blood Gas 37.0 Temperature Blood Gas 14.0 Respiration Rate Blood Gas Actual 16 Respiration Rate Blood Gas MASK - BIPAP Modality FiO2 100.0 Blood Gas 10 Pressure Support Blood Gas 15/5 IPAP/EPAP Ratio Blood Gas RT Notified Whom Blood Gas 05/08/2019 9:56: Notified Time 39 AM Lactic Acid 3.5 *H Level Medications Medication Current Medications Piperacillin Sod/ Tazobactam Sod 100 ml @ 200 mls/hr Q6 IVPB ; Start 05/08/19 at 12:00 Vancomycin HCl (Vanco Iv Per Pharmacy) VANCOMYCIN PER PHARMACY PER PROTOCOL XX ; Start 05/08/19 at 09:30 Norepinephrine 250 ml @ 1.875 mls/ hr TITRATE IV Last administered on 05/08/19at 09:50; Admin Dose 9.375 MLS/HR; Start 05/08/19 at 10:00 Vancomycin HCl 1.25 gm/Sodium Chloride 250 ml @ 83.333 mls/ hr ONCE ONCE IVPB ; Start 05/08/19 at 11:00; Stop 05/08/19 at 13:59 Sodium Chloride 1,000 ml @ 50 mls/hr Q20H IV Last administered on 05/08/19at 11:29; Admin Dose 50 MLS/HR; Start 05/08/19 at 10:45 Ondansetron HCl (Zofran Inj) 4 mg Q6H PRN IV NAUSEA AND/OR VOMITING; Start 05/08/19 at 11:00 Ipratropium [place] (Atrovent 0.02% (Neb)) 0.5 mg Q4H RESP THERAPY NEB ; Start 05/08/19 at 13:00 Ipratropium [place] (Atrovent 0.02% (Neb)) 0.5 mg Q2H RESP THERAPY PRN NEB SHORTNESS OF BREATH; Start 05/08/19 at 11:00 Acetaminophen (Tylenol Liquid) 650 mg Q6H PRN PO PAIN LEVEL 1-3 OR FEVER; Start 05/08/19 at 11:00 Docusate Sodium (Colace) 100 mg Q12H PRN PO CONSTIPATION; Start 05/08/19 at 11:00 Famotidine (Pepcid) 20 mg DAILY PO ; Start 05/08/19 at 14:00 Levalbuterol (Xopenex Neb) 1.25 mg Q4H RESP THERAPY HHN ; Start 05/08/19 at 13:00 Levalbuterol (Xopenex Neb) 1.25 mg Q2H RESP THERAPY PRN HHN SHORTNESS OF BREATH; Start 05/08/19 at 11:00 IV Flush (NS 3 ml) 3 ml PER PROTOCOL IV ; Start 05/08/19 at 11:00 Alprazolam (Xanax) 0.5 mg DAILY PRN PO ANXIETY; Start 05/08/19 at 11:30 Aspirin (Halfprin) 81 mg DAILY PO ; Start 05/09/19 at 09:00 Calcium/Vitamin D (Oyster Shell/ Vit-D (500/200)) 1 tab BID PO ; Start 05/08/19 at 21:00 Olanzapine (Zyprexa) 2.5 mg DAILY PO ; Start 05/09/19 at 09:00 Atorvastatin Calcium (Lipitor) 20 mg DAILY@21 PO ; Start 05/08/19 at 21:00 Zolpidem Tartrate (Ambien) 5 mg HS MAY REPEAT X 1 PRN PO INSOMNIA; Start 05/08/19 at 21:00 Patient Own Medication 1 ea PER SCRIPT PO ; Start 05/08/19 at 11:30; Status TESFAYE MCDANIEL MD May 08, 2019 12:13
--- NOTE | 2019-05-08 12:46 | CONS ---
Assessment/Plan Assessment/Plan Assessment/Plan (Daily) Assessment and recommendations; 1. Patient with history of being HIV-positive admitted with bilateral pneumonia more pronounced in right lung. 2. Remote history of pulmonary tuberculosis per patient in the late 60s. Status post treatment. 3. Anemia. 4. Diarrhea for the last few days. Continue current supportive care. Antimicrobial regimen per ID business transformation consultant. Obtain follow-up chest x-ray in 24 hours. Consultation Date/Type/Reason Admit Date/Time Date of Consultation: May 08, 2019 Type of Consult Pulmonary Patient is a 73-year-old male who came into the hospital with a few days history of shortness of breath chest congestion and clear sputum production. Upon evaluation chest x-ray was done which is showing extensive right-sided pneumonia. Patient denies any fever, chills, chest pain, nausea vomiting. Any body aches or myalgias. Past medical history; 1. History of being HIV positive since 1993. 2. History of PCP pneumonia in 1994. 3. History of pulmonary tuberculosis in late . 4. According to the patient there is no detectable viral load. CD4 count per patient during last testing was in the mid 200 range. 5. COPD. Medications; reviewed. Allergies; none. Social history; patient is an ex-smoker. Family history; noncontributory. Occupational history; patient was a hairdresser. Review of systems; denies any headache, seizures, dysphagia, chest pain, angina, wheezing, complains of clear sputum production. Denies any hemoptysis. Any fever or chills. Any body aches or myalgias. Complains of diarrhea for the last few days. Denies any urinary symptoms. Any weight loss. Any skin changes or any arthritis symptoms. General exam; elderly male, awake and alert. Currently in no distress. Date/Time of Note DATE: 05/08/19 TIME: 12:42 Past Medical History Home Meds Reported Medications Metoprolol Succinate* (Toprol XL*) 25 Mg Tab.sr.24h, 25 MG PO DAILY, #30 TAB 05/08/19 Olanzapine* (Zyprexa*) 2.5 Mg Tablet, 2.5 MG PO DAILY, #30 TAB 05/08/19 Darunavir* (Prezista*) 800 Mg Tablet, 800 MG PO DAILY, TAB 05/08/19 Alprazolam* (Alprazolam*) 0.5 Mg Tablet, 0.5 MG PO DAILY PRN for ANXIETY, TAB 05/08/19 Temazepam* (Temazepam*) 30 Mg Capsule, 30 MG PO HS PRN for INSOMNIA, CAP 05/08/19 Omeprazole* (Omeprazole*) 40 Mg Capsule.dr, 40 MG PO DAILY, #30 CAP 05/08/19 Ranitidine Hcl* (Ranitidine Hcl*) 300 Mg Tablet, 300 MG PO HS, #30 TAB 05/08/19 Pravastatin Sodium* (Pravastatin Sodium*) 80 Mg Tablet, 80 MG PO HS, TAB 05/08/19 Ritonavir* (Norvir*) 100 Mg Capsule, 100 MG PO DAILY, CAP 05/08/19 Etravirine (Intelence) 100 Mg Tablet, 100 MG PO QID, TAB 05/08/19 Raltegravir Potassium* (Isentress*) 400 Mg Tablet, 400 MG PO BID, TAB 05/08/19 Aspirin* (Aspirin* EC) 81 Mg Tablet.dr, 81 MG PO DAILY, TAB 05/08/19 Magnesium Oxide* (Magnesium Oxide*) 400 Mg Tablet, 400 MG PO DAILY, TAB 05/08/19 Calcium Carbonate/Vitamin D3 (Oysco 500+D Tablet) 1 Each Tablet, 1 EACH PO BID, TAB 05/08/19 Losartan Potassium* (Losartan Potassium*) 25 Mg Tablet, 12.5 MG PO DAILY, TAB 05/08/19 Discontinued Reported Medications [Ventolin Prn] No Conflict Check 08/15/13 Nitroglycerin (Nitrostat) 25 Tab Subl, 0.4 TAB SL PRN 08/15/13 Olanzapine* (Zyprexa*) 20 Mg Tablet, 20 MG PO DAILY 08/15/13 Aspirin* (Ecotrin*) 81 Mg Tablet.dr, 81 MG PO DAILY 08/15/13 Aspirin (Aspirin) 81 Mg Chew, 81 MG GTB 08/15/13 Ritonavir* (Norvir*) 100 Mg Capsule, 100 MG PO DAILY 08/15/13 Raltegravir Potassium (Isentress) 100 Mg Tab.chew, 400 MG PO BID 08/15/13 Etravirine (Intelence) 100 Mg Tablet, 100 MG PO BID 08/15/13 Pravastatin Sodium* (Pravastatin Sodium*) 80 Mg Tablet, 80 MG PO HS 08/15/13 [Sio-Niacin] No Conflict Check 08/15/13 Omeprazole* (Prilosec*) 40 Mg Capsule.dr, 40 MG PO DAILY 08/15/13 [Lorazepam 0.5 Mg. X2] No Conflict Check 08/15/13 Temazepam* (Temazepam*) 7.5 Mg Capsule, 15 MG PO HS 08/15/13 Calcium Carbonate-Vitamin D3 (Calcium 500 + D Tablet) 1 Each Tablet, 1 EACH PO DAILY 08/15/13 Darunavir Ethanolate* (Prezista*) 600 Mg Tablet, 800 MG PO DAILY 08/15/13 Discontinued Scripts Meclizine Hcl* (Antivert*) 12.5 Mg Tab, 25 MG PO Q6H PRN for DIZZINESS, #20 TAB Prov:JAJA RANGEL MD 06/27/18 Prednisone* (Prednisone*) 20 Mg Tab, 40 MG PO DAILY for 4 Days, TAB Prov:GEOVANI PATIÑO MD 07/13/17 Albuterol Sulfate* (Ventolin HFA*) 18 Gm Hfa.aer.ad, 2 PUFF INHALATION Q4H, #1 INHALER Prov:GEOVANI PATIÑO MD 07/13/17 Phenazopyridine Hcl* (Pyridium*) 200 Mg Tab, 200 MG PO TID PRN for URINARY PAIN, #6 TAB Prov:GEOVANI PATIÑO MD 07/13/17 Ciprofloxacin Hcl* (Ciprofloxacin Hcl*) 500 Mg Tablet, 500 MG PO BID for 7 Days, TAB Prov:GEOVANI PATIÑO MD 07/13/17 Medications Current Medications Norepinephrine 250 ml @ 1.875 mls/ hr TITRATE IV Last administered on 05/08/19at 09:50; Admin Dose 9.375 MLS/HR; Start 05/08/19 at 10:00 Vancomycin HCl 1.25 gm/Sodium Chloride 250 ml @ 83.333 mls/ hr ONCE ONCE IVPB ; Start 05/08/19 at 11:00; Stop 05/08/19 at 13:59 Sodium Chloride 1,000 ml @ 50 mls/hr Q20H IV Last administered on 05/08/19at 11:29; Admin Dose 50 MLS/HR; Start 05/08/19 at 10:45 Ondansetron HCl (Zofran Inj) 4 mg Q6H PRN IV NAUSEA AND/OR VOMITING; Start 05/08/19 at 11:00 Ipratropium [place] (Atrovent 0.02% (Neb)) 0.5 mg Q4H RESP THERAPY NEB ; Start 05/08/19 at 13:00 Ipratropium [place] (Atrovent 0.02% (Neb)) 0.5 mg Q2H RESP THERAPY PRN NEB SHORTNESS OF BREATH; Start 05/08/19 at 11:00 Acetaminophen (Tylenol Liquid) 650 mg Q6H PRN PO PAIN LEVEL 1-3 OR FEVER; Start 05/08/19 at 11:00 Docusate Sodium (Colace) 100 mg Q12H PRN PO CONSTIPATION; Start 05/08/19 at 11:00 Famotidine (Pepcid) 20 mg DAILY PO ; Start 05/08/19 at 14:00 Levalbuterol (Xopenex Neb) 1.25 mg Q4H RESP THERAPY HHN ; Start 05/08/19 at 13:00 Levalbuterol (Xopenex Neb) 1.25 mg Q2H RESP THERAPY PRN HHN SHORTNESS OF BREATH; Start 05/08/19 at 11:00 IV Flush (NS 3 ml) 3 ml PER PROTOCOL IV ; Start 05/08/19 at 11:00 Alprazolam (Xanax) 0.5 mg DAILY PRN PO ANXIETY; Start 05/08/19 at 11:30 Aspirin (Halfprin) 81 mg DAILY PO ; Start 05/09/19 at 09:00 Calcium/Vitamin D (Oyster Shell/ Vit-D (500/200)) 1 tab BID PO ; Start 05/08/19 at 21:00 Olanzapine (Zyprexa) 2.5 mg DAILY PO ; Start 05/09/19 at 09:00 Atorvastatin Calcium (Lipitor) 20 mg DAILY@21 PO ; Start 05/08/19 at 21:00 Zolpidem Tartrate (Ambien) 5 mg HS MAY REPEAT X 1 PRN PO INSOMNIA; Start 05/08/19 at 21:00 Patient Own Medication 1 ea PER SCRIPT PO ; Start 05/08/19 at 11:30; Status UNV Ceftriaxone Sodium 50 ml @ 100 mls/hr DAILY IVPB ; Start 05/09/19 at 09:00 Doxycycline Hyclate (Vibramycin) 100 mg BID ONCE PO ; Start 05/08/19 at 21:00; Stop 05/08/19 at 21:01 Cefepime HCl 50 ml @ 100 mls/hr ONCE ONCE IVPB ; Start 05/08/19 at 13:00; Stop 05/08/19 at 13:29; Status UNV Allergies: Coded Allergies: No Known Allergies (Verified Allergy, Unknown, 05/08/19) Social History Smoking Status: Former smoker Exam/Review of Systems Exam Vitals Vital Signs Date Temp Pulse Resp B/P (MAP) Pulse Ox O2 O2 Flow FiO2 Time Delivery Rate 05/08/19 104 22 101/74 93 Nasal 3.0 12:33 (83) Cannula 05/08/19 100.4 11:35 Exam H ENT exam; supple neck, no JVD. No lymphadenopathy. Midline trachea. No thyromegaly. Patient is edentulous. No neck masses. No oral thrush. Chest exam; diminished breath sounds throughout. S1-S2 audible, no murmurs. Regular rhythm. Abdomen exam; soft, no organomegaly. Bowel sounds audible. Extremity exam; no peripheral edema clubbing. NET WASHER exam; no focal deficit. Results Result Diagram: 05/08/19 0801 05/08/19 0801 Results 24hrs Laboratory Tests Test 05/08/19 07:09 05/08/19 07:40 05/08/19 08:01 05/08/19 08:03 POC Venous 8.9 *H Lactate Urine Color SHANT Urine Clarity SLIGHTLY CLOUDY A Urine pH 6.0 Urine Specific 1.016 Fisher Urine Ketones TRACE A Urine Nitrite NEGATIVE Urine Bilirubin NEGATIVE Urine 1+ H Urobilinogen Urine Leukocyte NEGATIVE Esterase Urine 12 H Microscopic RBC Urine 8 H Microscopic WBC Urine Mucus FEW A Urine Hemoglobin 2+ H Urine Glucose NEGATIVE Urine Total 2+ H Protein White Blood 4.9 Count Red Blood Count 4.63 L Hemoglobin 13.4 L Hematocrit 41.0 L Mean Corpuscular 88.6 Volume Mean Corpuscular 28.9 L Hemoglobin Mean Corpuscular 32.7 Hemoglobin Mady nt Red Cell 14.6 H Distribution Width Platelet Count 84 L Mean Platelet 9.7 Volume Immature 1.000 H Granulocytes % Neutrophils % 83.2 H Lymphocytes % 9.9 L Monocytes % 5.7 Eosinophils % 0.0 Basophils % 0.2 Nucleated Red 0.4 H Blood Cells % Immature 0.050 H Granulocytes # Neutrophils # 4.1 Lymphocytes # 0.5 L Monocytes # 0.3 Eosinophils # 0.0 Basophils # 0.0 Nucleated Red 0.0 Blood Cells # Prothrombin Time 17.7 H Prothrombin Time 1.4 Ratio INR 1.45 International Normalized Ratio Activated 34.4 Partial Thrombop last Time Sodium Level 133 L Potassium Level 4.9 Chloride Level 101 Carbon Dioxide 20 L Level Anion Gap 12 Blood Urea 40 H Nitrogen Creatinine 1.46 H Est Glomerular Filtrat Rate mL/min Glucose Level 106 Calcium Level 7.8 L Total Bilirubin 1.3 Direct Bilirubin 0.40 H Indirect 0.9 Bilirubin Aspartate Amino 83 H Transf (AST/SGOT ) Alanine 73 H Aminotransferase (ALT/SGPT) Alkaline 58 Phosphatase Troponin I 0.072 Total Protein 5.5 L Albumin 2.7 L Globulin 2.80 Albumin/Globulin 0.96 Ratio Lipase 15 L Lactic Acid 7.1 *H Level Test 05/08/19 09:46 05/08/19 10:17 Blood Gas Blood arterial Specimen Source Arterial Blood 05/08/2019 9:45: Date Drawn 59 AM Arterial Blood 7.351 pH (Temp corrected) Arterial Blood 31.1 L pCO2 (Temp correct) Arterial Blood 130.9 H pO2 (Temp corrected) Arterial Blood 16.8 L HCO3 Arterial Blood -7.6 L Base Excess Arterial Blood 98.0 Oxygen Saturatio n Mark Test ACCEPTAB Arterial Blood Right Radial Gas Puncture Site Arterial 1.0 Blood Carboxyhem oglobin Arterial Blood 0.1 Methemoglobin Blood Gas A-a O2 551.0 H Differential Oxyhemoglobin 96.9 Percent Blood Gas 37.0 Temperature Blood Gas 14.0 Respiration Rate Blood Gas Actual 16 Respiration Rate Blood Gas MASK - BIPAP Modality FiO2 100.0 Blood Gas 10 Pressure Support Blood Gas 15/5 IPAP/EPAP Ratio Blood Gas RT Notified Whom Blood Gas 05/08/2019 9:56: Notified Time 39 AM Lactic Acid 3.5 *H Level Medications Medication Current Medications Norepinephrine 250 ml @ 1.875 mls/ hr TITRATE IV Last administered on 05/08/19at 09:50; Admin Dose 9.375 MLS/HR; Start 05/08/19 at 10:00 Vancomycin HCl 1.25 gm/Sodium Chloride 250 ml @ 83.333 mls/ hr ONCE ONCE IVPB ; Start 05/08/19 at 11:00; Stop 05/08/19 at 13:59 Sodium Chloride 1,000 ml @ 50 mls/hr Q20H IV Last administered on 05/08/19at 11:29; Admin Dose 50 MLS/HR; Start 05/08/19 at 10:45 Ondansetron HCl (Zofran Inj) 4 mg Q6H PRN IV NAUSEA AND/OR VOMITING; Start 05/08/19 at 11:00 Ipratropium [place] (Atrovent 0.02% (Neb)) 0.5 mg Q4H RESP THERAPY NEB ; Start 05/08/19 at 13:00 Ipratropium [place] (Atrovent 0.02% (Neb)) 0.5 mg Q2H RESP THERAPY PRN NEB SHORTNESS OF BREATH; Start 05/08/19 at 11:00 Acetaminophen (Tylenol Liquid) 650 mg Q6H PRN PO PAIN LEVEL 1-3 OR FEVER; Start 05/08/19 at 11:00 Docusate Sodium (Colace) 100 mg Q12H PRN PO CONSTIPATION; Start 05/08/19 at 11:00 Famotidine (Pepcid) 20 mg DAILY PO ; Start 05/08/19 at 14:00 Levalbuterol (Xopenex Neb) 1.25 mg Q4H RESP THERAPY HHN ; Start 05/08/19 at 13:00 Levalbuterol (Xopenex Neb) 1.25 mg Q2H RESP THERAPY PRN HHN SHORTNESS OF BREATH; Start 05/08/19 at 11:00 IV Flush (NS 3 ml) 3 ml PER PROTOCOL IV ; Start 05/08/19 at 11:00 Alprazolam (Xanax) 0.5 mg DAILY PRN PO ANXIETY; Start 05/08/19 at 11:30 Aspirin (Halfprin) 81 mg DAILY PO ; Start 05/09/19 at 09:00 Calcium/Vitamin D (Oyster Shell/ Vit-D (500/200)) 1 tab BID PO ; Start 05/08/19 at 21:00 Olanzapine (Zyprexa) 2.5 mg DAILY PO ; Start 05/09/19 at 09:00 Atorvastatin Calcium (Lipitor) 20 mg DAILY@21 PO ; Start 05/08/19 at 21:00 Zolpidem Tartrate (Ambien) 5 mg HS MAY REPEAT X 1 PRN PO INSOMNIA; Start 05/08/19 at 21:00 Patient Own Medication 1 ea PER SCRIPT PO ; Start 05/08/19 at 11:30; Status UNV Ceftriaxone Sodium 50 ml @ 100 mls/hr DAILY IVPB ; Start 05/09/19 at 09:00 Doxycycline Hyclate (Vibramycin) 100 mg BID ONCE PO ; Start 05/08/19 at 21:00; Stop 05/08/19 at 21:01 Cefepime HCl 50 ml @ 100 mls/hr ONCE ONCE IVPB ; Start 05/08/19 at 13:00; Stop 05/08/19 at 13:29; Status UNV JESICA MUÑOZ May 08, 2019 12:46
[2019-05-08] MEDS: LEVALBUTEROL (NEB) 1.25 MG/0.5 ML AMP HHN SCH ×4 (13:00→21:19)
[2019-05-08] MEDS: IPRATROPIUM (NEB) 0.5 MG/2.5 ML AMP NEB SCH ×4 (13:00→21:19)
[2019-05-08] MEDS ORDERED: TRIMETHOPRIM/SULFAMETHOXAZOLE 10 ML in DEXTROSE 5% 250 ML IVPB ONE (13:00)
[2019-05-08] MEDS ORDERED: CEFEPIME 1GM/50 ML (PMX) 50 ML IVPB ONE (13:00)
[2019-05-08] MEDS ORDERED: FAMOTIDINE 20 MG TAB PO SCH (14:00)
--- NOTE | 2019-05-08 17:05 | CONS ---
DATE OF ADMISSION: 05/08/2019 DATE OF CONSULTATION: 05/08/2019 TYPE OF CONSULTATION: Nephrology. REASON FOR CONSULTATION: Acute kidney injury. PHYSICIAN REQUESTING CONSULTATION: Johanny Pack NP HISTORY OF PRESENT ILLNESS: This is a 73-year-old male with past medical history of dyslipidemia, hi story of HIV, history of coronary artery disease, history of arrhythmia status pacemaker, history of depression and anxiety disorder, history of hypertension, was brought into [facility] Emergency Room with worsening cough, shortness of breath and fever. The patient states he had regla oing cough for approximately 2 weeks. Yesterday one day prior to arrival, the patient was having beatrice rrhea. The patient stated he stopped taking his HIV medications for approximately 2 days. Upon arri dc to the emergency room, the patient was noted to be hypotensive, in respiratory distress. The pat ient had a chest x-ray which showed evidence of infiltrate. The patient was started on IV fluids, an tibiotic therapy and placed on BiPAP. The patient's laboratory data showed hemoglobin of 13.4, a lac tic acid of 7.1, platelet count 84,000. In terms of patient's renal history, the patient denies any prior history of chronic kidney disease, history of acute kidney injury. The patient denies any hemoptysis, hematemesis, hematochezia. PAST MEDICAL HISTORY: As stated above, history of HIV, history of coronary artery disease, history o f arrhythmia, history of depression and anxiety disorder, history of hypertension. PAST SURGICAL HISTORY: Status post pacemaker placement. FAMILY HISTORY: No family history of kidney disease. SOCIAL HISTORY: Does not drink, smoke, do drugs. MEDICATIONS: Have been reviewed. ALLERGIES: HAVE BEEN REVIEWED. REVIEW OF SYSTEMS: A 14-point review of systems conducted. Pertinent positives stated in HPI, other finney negative. PHYSICAL EXAMINATION: VITAL SIGNS: Blood pressure is 101/74, respiration is 22, pulse 104, temperature 100.4. HEENT: Head is normocephalic. NECK: Supple. HEART: Regular rate. LUNGS: Show diminished breath sounds at base. ABDOMEN: Soft, nontender to palpation without rebound or guarding. EXTREMITIES: Negative for clubbing, cyanosis. No edema. DERMATOLOGIC: No rashes. MUSCULOSKELETAL: No joint effusion. NEUROLOGIC: No focal deficits. LABORATORY DATA: Have been reviewed. Urinalysis was reviewed. IMAGING STUDIES: Reviewed. ASSESSMENT AND PLAN: This is a 73-year-old male who presents with: 1. Nonoliguric acute kidney injury with unknown baseline creatinine. Etiology of acute kidney injur y is secondary to sepsis, hemodynamics. The patient's initial urinalysis shows mild pyuria, hematuri a and proteinuria. Suspicion however is low for acute glomerulonephritis or vasculitis given patient 's clinical presentation. Plan at this point is to do a full evaluation. We will repeat urinalysis. We will quantify patient's proteinuria and check urine electrolytes. We would recommend to continu e aggressive IV hydration, IV antibiotics. Otherwise, continue supportive care, renally dose all med s, avoid nephrotoxins. We will check a renal ultrasound to rule out obstruction, although suspicion is low. 2. Hyponatremia secondary to acute kidney injury. Continue to monitor. 3. Lactic acidosis, metabolic acidosis. Etiology is likely secondary to sepsis. Continue current t reatment plan. Continue antibiotic therapy, IV hydration and monitor. Continue to trend lactic acid levels. 4. Mild anemia. Monitor hemoglobin and hematocrit levels. 5. Mineral bone disorder. Monitor calcium and phosphorus levels. 6. Severe sepsis, possible septic shock secondary to pneumonia. Continue current treatment plan. C ontinue antibiotic therapy. Continue IV fluids. Follow up cultures. Follow up with infectious dise ase. 7. Acute hypoxic respiratory failure secondary to pneumonia, possible community-acquired versus heal thcare-associated. Continue current treatment plan. Other possibilities such as pneumocystis pneumo apple is a consideration. We will follow up with pulmonary for further recommendations. 8. History of human immunodeficiency virus. Follow up with infectious disease. Check CD4 count, vi ral load. 9. Dyslipidemia. Continue statin therapy. 10. History of coronary artery disease. Continue medical management. 11. History of arrhythmia, status post pacemaker. Continue to monitor. Thank you, Johanny, for this interesting consult. It will be a pleasure to follow the patient with you throughout the hospital course. Dictated By: THAI LIU DO NR/NTS Conf#: [id number] DID#: [id number] CC: ASHWINI MILLER MD; TESFAYE SEXTON MD;*EndCC*
--- NOTE | 2019-05-08 18:20 | RADRPT ---
Echocardiogram Report Patient Name: Kenna TAYLOR ID: [id number] : 1945 (73y 6m)Study Date: 05/08/2019 1:53:57 PM Gender: MAccession #: [id number] Tech: [place] Location: [facility] ([facility] Ref.Physician: STEPHEN ACOSTA Height(Cm): BSA: Weight(Kg): Quality: Technically Difficult StudyOrder Physician: STEPHEN ACOSTA Account #: Procedures: Echocardiographic Report: Transthoracic echocardiogram with complete 2D, M-Mode, and doppler examination. Indications: Shortness of breath. Measurements: 2D/M Mode Doppler Measurement Value Normal Range Measurement Value Normal Range LVIDd 2D 4.1 [ 4.2 - 5.8 ] cm AV Peak Mamadou 1.5 [ 100.0 - 170.0 ] cm/sec LVIDs 2D 2.9 [ 2.5 - 4.0 ] cm AV Peak PG 9.0 [ 2.0 - 9.0 ] mmHg LVPWd 2D 1.0 [ 0.6 - 1.0 ] cm LVOT Peak Mamadou 1.0 [ 70.0 - 110.0 ] cm/sec IVSd 2D 1.0 [ 0.6 - 1.0 ] cm LVOT Peak PG 4.0 [ 2.0 - 6.0 ] mmHg AoR Diam 2D 3.4 [ 2.6 - 3.4 ] cm MV E Peak Mamadou 0.9 [ 60.0 - 130.0 ] cm/sec EDV 2D 74.7 [ 62.0 - 150.0 ] ml MV A Peak Mamadou 0.5 [ 100.0 - 120.0 ] cm/sec ESV 2D 32.8 [ 21.0 - 61.0 ] ml MV E/A 1.9 [ 0.8 - 1.5 ] ratio EF 2D 56.1 [ 52.0 - 72.0 ] percent MV Decel Time 211 [ 104 - 258 ] msec LA Dimen 2D 3.1 [ 3.0 - 4.0 ] cm Lat E` Mamadou 0.2 [ 10.0 - 15.0 ] cm/sec Lateral E/E` 5.8 [ 1.0 - 2.0 ] ratio Med E` Mamadou 0.1 cm/sec MV E/A 1.9 [ 0.8 - 1.5 ] ratio TR Peak Mamadou 3.0 [ 100.0 - 280.0 ] cm/sec TR Peak PG 36.0 mmHg RVSP 39.0 [ 10.0 - 36.0 ] mmHg Findings: Left Ventricle: Lower limits of normal systolic function. Normal left ventricular cavity size. Mild concentric left ventricular hypertrophy. Ejection fraction is visually estimated at 50-55 %. Abnormal Diastolic Function. Right Ventricle: Normal right ventricular size. Normal right ventricular systolic function. Left Atrium: The left atrium is normal in size. Right Atrium: The right atrium is normal in size. Mitral Valve: Mild mitral leaflet calcification. Mild mitral annular calcification. Trace mitral regurgitation. Aortic Valve: No hemodynamically significant aortic stenosis by doppler. Aortic cusps appear mildly calcified. Trace aortic valve regurgitation. Tricuspid Valve: Normal appearance of the tricuspid valve. The estimated Peak RVSP is 39 mmHg. There is mild tricuspid regurgitation. Pericardium: Normal pericardium with no significant pericardial effusion. Aorta: Normal aortic root. IVC: Normal size and normal respiratory collapse consistent with normal right atrial pressure. Conclusions: Lower limits of normal systolic function. Normal left ventricular cavity size. Mild concentric left ventricular hypertrophy. Ejection fraction is visually estimated at 50-55 %. Abnormal Diastolic Function. Normal right ventricular size. Normal right ventricular systolic function. The left atrium is normal in size. The right atrium is normal in size. The estimated Peak RVSP is 39 mmHg. There is mild tricuspid regurgitation. No significant valvular stenosis or regurgitation seen of remaining visualized valves. Normal pericardium with no significant pericardial effusion. Electronically Signed By: David Hamm 2019-05-08 18:19:28 PDT
[2019-05-08] MEDS ORDERED: ZOLPIDEM 5 MG TAB PO PRN (21:00)
[2019-05-08] MEDS ORDERED: ATORVASTATIN 20 MG TAB PO SCH (21:00)
[2019-05-08] MEDS ORDERED: DOXYCYCLINE 100 MG TAB PO ONE (21:00)
[2019-05-08] MEDS ORDERED: CALCIUM/VITAMIN D (500/200) TAB PO SCH (21:00)
[2019-05-08 21:15] VITALS: BP 101/75; PULSE 101
[2019-05-08 23:10] VITALS: RESP 20
--- NOTE | 2019-05-08 23:39 | EN ---
Date/Time of Note Date/Time of Note DATE: 05/08/19 TIME: 23:27 ER Progress Note This is a 73-year-old male that had been admitted to the hospital. The patient had developed worsening of his respiratory distress. He was currently awaiting a bed. When I went to the bedside the patient was on a BiPAP. He was hypoxic. He was using accessory muscles of respiration. At this time the patient was intubated not requiring RSI. The patient did not have a gag reflex. There was significant pulmonary edema. The tube was seen in past going to the course by myself using 7.50 endotracheal tube. The tube was confirmed to be in good position with equal and symmetrical breath sounds are bilaterally, condensation seen within the tube. At 2257 the patient had developed a CODE BLUE as he was hypotensive. He was already on norepinephrine. The patient had ACLS protocol obtained. The patient did have return of spontaneous circulation at 2304. The patient again lost pulses at 2318. At this time I performed a cardiac ultrasound and there is no cardiac activity. The patient's pupils are fixed and dilated. There is no spontaneous ventilatory effort. Therefore time of was called by myself at 2319. ELBA FAIRCHILD MD May 08, 2019 23:38
[2019-05-09] MEDS ORDERED: CEFTRIAXONE 1 GM/50 ML (PMX) 50 ML IVPB SCH (09:00)
[2019-05-09] MEDS ORDERED: OLANZAPINE 2.5 MG TAB PO SCH (09:00)
[2019-05-09] MEDS ORDERED: ASPIRIN (EC) 81 MG TAB PO SCH (09:00)
--- NOTE | 2019-05-09 09:24 | DES ---
Date/Time of Note Date/Time of Note DATE: 05/09/19 TIME: 09:24 Discharge/ Summary Admission/Discharge Info Admit Date/Time Final Diagnosis Severe septic shock secondary to healthcare acquired pneumonia Acute hypoxemic respiratory failure secondary to sepsis Severe Pulmonary edema secondary to diastolic heart failure Acute decompensated diastolic heart failure. 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 SECONDARY CAUSES OF : 1. Severe septic shock secondary to healthcare acquired pneumonia dated 05/08/2019 2. Acute hypoxemic respiratory failure secondary to sepsis dated 05/08/2019 3. Severe Pulmonary edema dated 05/08/2019 secondary to diastolic heart failure 3. 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 Severe emphysematous COPD dated 05/08/2019 5. HIV dated 05/08/2019 6. Coronary artery disease with pacemaker implantation dated 05/08/2019 7. Acute Kidney Injury secondary to sepsis dated 05/08/2019 Hospital Course DATE OF ADMISSION: 05/08/2019 DATE OF EXPIRATION: 05/08/2019 TIME OF EXPIRATION: 2319 PRIMARY CAUSE OF : Cardiopulmonary arrest. SECONDARY CAUSES OF : 1. Severe septic shock secondary to healthcare acquired pneumonia dated 05/08/2019 2. Acute hypoxemic respiratory failure secondary to sepsis dated 05/08/2019 3. Severe Pulmonary edema dated 05/08/2019 secondary to diastolic heart failure 3. 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 Severe emphysematous COPD dated 05/08/2019 5. Acute decompensated diastolic heart failure. dated 05/08/2019 6. Coronary artery disease with pacemaker implantation dated 05/08/2019 7. Acute Kidney Injury secondary to sepsis dated 05/08/2019 8. HIV dated 05/08/2019 FINAL DIAGNOSES: Severe septic shock secondary to healthcare acquired pneumonia Acute hypoxemic respiratory failure secondary to sepsis Severe Pulmonary edema secondary to diastolic heart failure Acute decompensated diastolic heart failure. 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 Dr. Junior Thomason, nephrology. 2. Dr. Montes, pulmonary. 3. , infectious disease DIAGNOSTIC AND LABORATORY DATA: The chest radiograph demonstrated Diffuse right greater than left interstitial and right lung predominant extensive patchy airspace opacities may represent multifocal infection, hemorrhage, or asymmetric pulmonary edema in the acute setting. Chest CT showed Dense consolidation right upper lobe and right lower lobe compatible with pneumonia, Underlying severe emphysema and Vascular calcifications. Renal ultrasound showed possible intrinsic renal disease. The electrocardiogram showed sinus tachycardia rate 160's w/right bundle branch block. There was an elevated lactate level of 7.1. BUN 40/Creat 1.46. AST 83/ALT 73. BNP 6760. HISTORY OF PRESENT ILLNESS: This is a 73-year-old male with a past medical history of dyslipidemia, HIV on treatment, pulmonary tuberculosis treated, coronary artery disease with stent placed, pacemaker placed, depression/anxiety disorders, hypertension, who was brought into the emergency room with worsening cough, shortness of breath, fevers since yesterday. Apparently, patient has been having this cough for about 2 weeks which got worse yesterday. He was having diarrhea lately. He also stopped taking his HIV drugs for the last 2 days. He denied chest pain, palpitation, nausea, vomiting, abdominal pain, dizziness, headache, numbness, tingling, speech difficulties, vision changes, constipation or other constitutional symptoms. In the emergency room, patient was noted with a hemoglobin 13.4, hematocrit 41, platelet 84,000, sodium 133, BUN 40, creatinine 1.46 with a lactic acid level 7.1. Patient was also noted with elevated AST and ALT. Vital signs temperature 101, pulse rate 112, respiratory rate 28, blood pressure 77/51 and oxygen saturation 91% on room air. Chest x-ray showed Diffuse right greater than left interstitial and right lung predominant extensive patchy airspace opacities may represent multifocal infection, hemorrhage, or asymmetric pulmonary edema. Patient was given breathing treatments, azithromycin, ceftriaxone and fluid bolus in the emergency room. HOSPITAL COURSE: Patient was noted for extensive right-sided pneumonia with severe septic shock. Patient was noted with worsening respiratory status in the emergency room with hypotensive episodes requiring fluid bolus with addition of central line insertion and initiation of vasopressors. Patient required BiPAP. A chest CT showed dense consolidation right upper lobes and right lower lobe compatible with pneumonia with underlying severe emphysema. Patient was given broad- spectrum IV antimicrobial and was seen by infectious disease specialist, and solderer assembly repair. He was given breathing treatments [id number]. Patient was also noted with acute kidney injury secondary to sepsis for which he was also seen by 911 emergency services dispatcher. Plan was to admit patient to the intensive care unit for close monitoring of respiratory status and for blood pressure monitoring on vasopressors. As patient was awaiting for a bed in ICU, patient became hypoxic in the emergency room requiring accessory muscles of respiration. Patient was subsequently intubated. Patient was also noted acute decompensated diastolic congestive heart failure. Patient also had severe pulmonary edema. At 2257, patient became unresponsive and a blood pressure was not available, as such a CODE BLUE was initiated. Patient was already on max Levophed. ACLS protocol initiated with return of spontaneous around 2318. Patient then again lost pulse at 2318 with no cardiac activity via cardiac ultrasound. The patient had no clinical signs of life. The patient had no audible heart sounds. The patient had no spontaneous breathing efforts. The patient had no response to deep pain. The patient's pupils were fixed and dilated. The patient had a flat line on cis coordinator. The patient was declared on 05/09/[address]Cynthia Carter. At this time, we would like to thank all the consultants for seeing the patient, doing the necessary procedures, and providing recommendations. Patient was seen in collaboration with Pending Labs/Cultures Laboratory Tests Test 05/08/19 09:46 05/08/19 10:17 05/08/19 13:21 Blood Gas Specimen Blood arterial Source Arterial Blood Date 05/08/2019 9:45:59 Drawn AM Arterial Blood pH 7.351 (7.350-7.450) (Temp corrected) Arterial Blood pCO2 31.1 mmhg (35-45) (Temp correct) Arterial Blood pO2 130.9 (Temp corrected) mmHG (80-90.0) Arterial Blood 16.8 HCO3 mmol/L (22.0-26.0) Arterial Blood Base -7.6 Excess mmol/L (-3.0-3) Arterial Blood 98.0 Oxygen Saturation mmHG (95.0-100.0) Mark Test ACCEPTAB Arterial Blood Gas Right Radial Puncture Site Arterial 1.0 % (0.0-3.0) Blood Carboxyhemogl obin Arterial Blood 0.1 % (0.0-1.5) Methemoglobin Blood Gas A-a O2 551.0 Differential mmHg (7.0-24.0) Oxyhemoglobin 96.9 % (93.0-99.0) Percent Blood Gas 37.0 C Temperature Blood Gas 14.0 Respiration Rate Blood Gas Actual 16 Respiration Rate Blood Gas Modality MASK - BIPAP FiO2 100.0 % Blood Gas Pressure 10 Support Blood Gas IPAP/EPAP 15/5 Ratio Blood Gas Notified RT Whom Blood Gas Notified 05/08/2019 9:56:39 Time AM Lactic Acid Level 3.5 4.5 mmol/L (0.5-2.0) mmol/L (0.5-2.0) STEPHEN ACOSTA NP May 09, 2019 09:24
== END 2019-05-09 02:16 | disposition expired | DRG 871 ==
LOC: E/R 06:35 → TEL 08:28 → EDBEDREQSVC 16:16 → EDBEDREQ 16:16 → E/R 05-09 02:16 → CANBEDREQ 05-09 06:04
PROVIDERS: ADMIT Internal Medicine Pulmonary Disease; ATTEND Internal Medicine Pulmonary Disease
PROC: 0BH17EZ Insertion of Endotracheal Airway into Trachea, Via Natural or Artificial Opening (ICD-10-PCS; principal; 2019-05-08)
DX: A41.9 Sepsis, unspecified organism (principal); R65.21 Severe sepsis with septic shock; J96.01 Acute respiratory failure with hypoxia; J18.9 Pneumonia, unspecified organism; I50.33 Acute on chronic diastolic (congestive) heart failure; N17.9 Acute kidney failure, unspecified; E87.1 Hypo-osmolality and hyponatremia; E87.2 Acidosis; D64.9 Anemia, unspecified; E78.5 Hyperlipidemia, unspecified; I25.10 Atherosclerotic heart disease of native coronary artery without angina pectoris; Z95.5 Presence of coronary angioplasty implant and graft; Z95.0 Presence of cardiac pacemaker; F32.9 Major depressive disorder, single episode, unspecified; F41.9 Anxiety disorder, unspecified; Z87.891 Personal history of nicotine dependence; Z86.11 Personal history of tuberculosis; E83.89 Other disorders of mineral metabolism; I11.0 Hypertensive heart disease with heart failure; J43.9 Emphysema, unspecified; I46.9 Cardiac arrest, cause unspecified
CPT/HCPCS: 31500; 36600; 71045; 71250; 76775; 80053; 81001; 81003; 82043; 82803; 83605; 83690; 83880; 84145; 84155; 84300; 84484; 85025; 85610; 85730; 86360; 86850; 86900; 86901; 87086; 87275; 87276; 87279; 87280; 87400; 87536; 92950; 93005; 93306; 94002; 94644; 94645; 94660; 94664; 96365; 96375; J0456; J0696; J2930; J3370; J7030; J7050